=== PATIENT | male | born 1950 | race Caucasian/White ===

== ENCOUNTER 2017-06-03 07:56 | Day surgery (SDC) | payer BC ==
[2017-06-03 08:42] VITALS: BMI 22.9
--- NOTE | 2017-06-17 09:28 | PROCN ---
DATE: 06/03/2017 REFERRING PHYSICIAN: Vishal Phelan MD [employer]OD[employer] MANAGER: Vishal Phelan MD INDICATION: Recurrent dizziness. PROCEDURE: Tilt table test. DESCRIPTION OF PROCEDURE: The patient was put on the table and the table was tilted at 30 degrees for 5 minutes and 60 degrees for 15 minutes. Blood pressure response and heart rate were monitored every 3 minutes. The patient was asymptomatic throughout the test. IMPRESSION: Appropriate response to appropriate blood pressure and heart rate response to tilt tablet test. The patient is asymptomatic throughout the test. Vishal Phelan MD
== END 2017-06-03 09:00 | disposition home or self-care (01) ==
LOC: C.CATHLAB 07:56
PROVIDERS: ATTEND Internal Medicine
DX: R42 Dizziness and giddiness (principal)